=== PATIENT | female | born 1990 | race Caucasian/White ===

== ENCOUNTER 2024-01-10 16:40 | Emergency (ER) | payer OTHER ==
[~2024-01-10] VITALS: Ht 165.1 cm; Wt 74.3 kg
[~2024-01-10 16:40] MED LIST: ALBU8HFA PO
[2024-01-10] MEDS ORDERED: iohexol 350MG/ML 100ml bottle IV ONE (19:30)
[2024-01-10] MEDS: CefTRIAXone 500MG IM Kit w/LIDOcaine (for pt below or = to 150kg) IM ONE (21:25)
[2024-01-10] MEDS: TINIDAZOLE 500 MG TABLET PO ONE (21:26)
[2024-01-10] MEDS: azithromycin 250mg tablet PO ONE (21:26)
[2024-01-10 22:51] VITALS: BP 148/89; PULSE 78; RESP 15; TEMP 98.6; O2SAT 98
== END 2024-01-10 22:44 | disposition home or self-care (01) ==
LOC: ER 16:40 → EEVIPCON 16:40 → ER 22:44
DX: T76.21XA Adult sexual abuse, suspected, initial encounter (principal); Z79.899 Other long term (current) drug therapy
CPT/HCPCS: 70498; 96372; 99285; J0696; J3490; Q9967